=== PATIENT | male | born 1970 | race African-American/Black ===

== ENCOUNTER 2023-12-22 20:32 | Inpatient (IN) | payer BC, OTHER ==
[~2023-12-22] VITALS: Ht 185.4 cm; Wt 154.0 kg
[2023-12-22 21:45] LABS: Basophils # (auto) 0.1 10 ^3/uL (0-0.2); Hemoglobin 12.1 g/dL (13.5-17.5); Lymphocytes # (auto) 3.5 10 ^3/uL (0.4-5.4); Neutrophils # (auto) 4.8 10 ^3/uL (1.6-8.6); Nucleated Red Blood Cells % 0.1 %
[2023-12-22 21:47] LABS: Basophils % (auto) 0.7 % (0.0-2.0); Eosinophils # (auto) 0.5 10 ^3/uL (0-0.8); Eosinophils % (auto) 4.7 % (0.0-7.0); Hematocrit 38.6 % (41.0-53.0); Lymphocytes % (auto) 34.7 % (10.0-50.0); Mean Corpuscular Hemoglobin 23.7 pg (28.0-32.0); Mean Corpuscular Hgb Conc. 31.4 g/dL (32.0-36.0); Mean Corpuscular Volume 75.5 fL (80.0-100.0); Monocytes # (auto) 1.2 10 ^3/uL (0-1.3); Neutrophils % (auto) 47.9 % (37.0-80.0); Red Cell Distribution Width 15.8 % (11.8-14.3); White Blood Cell 10.1 10^3/uL (4.4-10.8)
[2023-12-22 22:04] LABS: Alanine Aminotransferase 27 U/L (7-40); Albumin 4.2 g/dL (3.2-4.8); Alkaline Phosphatase 81 U/L (46-116); Anion Gap 7 (5-15); Aspartate Aminotransferase 24 U/L (13-40); BUN/Creatinine Ratio 8.7 (10.0-20.0); Blood Urea Nitrogen 19 mg/dL (9-23); Calcium 10.1 mg/dL (8.7-10.4); Carbon Dioxide 27 mmol/L (20-30); Chloride 107 mmol/L (98-107); Glucose 136 mg/dL (74-106); Potassium 3.4 mmol/L (3.5-5.1); Sodium 141 mmol/L (136-145)
[2023-12-22 22:05] LABS: Bilirubin, Total 0.3 mg/dL (0.2-1.0)
[2023-12-22] MEDS: hydrALAZINE HCL 10 MG TAB PO ONE (22:14)
[2023-12-22 22:29] LABS: Urine Bacteria FEW /hpf (None Seen); Urine Blood TRACE /uL (Negative); Urine Clarity Clear (Clear); Urine Color Colorless (Yellow); Urine Protein, UAD 3+ (Negative); Urine Specific Gravity 1.012 (1.001-1.035); Urine Urobilinogen Normal (Negative); Urine WBC 1 /hpf (0 - 3)
[2023-12-22] MEDS: hydroCHLOROthiazide 25 MG TAB PO ONE (22:57)
[2023-12-22] MEDS: HYDROcodone-ACET 5/325MG TAB PO ONE (22:57)
[2023-12-22] MEDS: NIFEdipine ER 30 MG TAB PO ONE (22:58)
[2023-12-23] VITALS (7 sets, daily range): BP systolic 149–170; BP diastolic 89–102; PULSE 63–73; RESP 16–18; TEMP 98.2–98.5; O2SAT 94–98
[2023-12-23] MEDS: hydrALAZINE HCL 20 MG/ML VL IV ONE (02:26)
[2023-12-23] MEDS: cloNIDine 0.2 mg/24hr 7DAY PATCH TD ONE (02:52)
[2023-12-23] MEDS ORDERED: ONDANSETRON HCL 4 MG/2 ML VIAL IV PRN (03:30)
[2023-12-23] MEDS ORDERED: HYDROcodone-ACET 5/325MG TAB PO PRN (03:30)
[2023-12-23] MEDS ORDERED: DOCUSATE SOD 100 MG CAP PO PRN (03:30)
[2023-12-23] MEDS ORDERED: DEXTROSE (50%) 50ML SYRG IV PRN (03:30)
[2023-12-23] MEDS ORDERED: ACETAMINOPHEN 325 MG TAB PO PRN (03:30)
[2023-12-23 05:09] LABS: Alanine Aminotransferase 28 U/L (7-40); Albumin 4.5 g/dL (3.2-4.8); Alkaline Phosphatase 79 U/L (46-116); Anion Gap 6 (5-15); Aspartate Aminotransferase 19 U/L (13-40); Calcium 10.3 mg/dL (8.7-10.4); Carbon Dioxide 29 mmol/L (20-30); Chloride 104 mmol/L (98-107); Glucose 192 mg/dL (74-106); Potassium 3.3 mmol/L (3.5-5.1); Sodium 139 mmol/L (136-145)
[2023-12-23 05:10] LABS: Bilirubin, Total 0.3 mg/dL (0.2-1.0); Total Protein 8.6 g/dL (5.7-8.2)
[2023-12-23] MEDS: POTASSIUM CHL 20 Meq TABLET PO ONE (05:12)
[2023-12-23] MEDS: amLODIPine BESYLATE 5 MG TAB PO ONE (05:12)
[2023-12-23 05:21] LABS: Basophils # (auto) 0.1 10 ^3/uL (0-0.2); Basophils % (auto) 0.7 % (0.0-2.0); Eosinophils # (auto) 0.2 10 ^3/uL (0-0.8); Hemoglobin 12.7 g/dL (13.5-17.5); Lymphocytes # (auto) 2.1 10 ^3/uL (0.4-5.4); Neutrophils # (auto) 7.1 10 ^3/uL (1.6-8.6)
[2023-12-23 05:23] LABS: Hematocrit 39.3 % (41.0-53.0); Lymphocytes % (auto) 20.7 % (10.0-50.0); Mean Corpuscular Hemoglobin 24.3 pg (28.0-32.0); Mean Corpuscular Hgb Conc. 32.3 g/dL (32.0-36.0); Mean Corpuscular Volume 75.2 fL (80.0-100.0); Monocytes # (auto) 0.8 10 ^3/uL (0-1.3); Monocytes % (auto) 7.6 % (0.0-12.0); Nucleated Red Blood Cells % 0.1 %; Red Blood Cells 5.23 10^6/uL (4.5-5.90); Red Cell Distribution Width 15.6 % (11.8-14.3); White Blood Cell 10.3 10^3/uL (4.4-10.8)
[2023-12-23] MEDS: SODIUM CHLOR 0.9% PF (SALINE LOCK) 10ML VIAL/SYR IV SCH (06:00)
[2023-12-23] MEDS: hydrALAZINE HCL 20 MG/ML VL IV PRN (06:51)
[2023-12-23] MEDS: LEVOTHYROXINE SODIUM 100 MCG TAB PO SCH (07:00)
[2023-12-23] MEDS: InsuLIN REG 1unit/0.01ml Soln (100units/ml) SC SCH ×2 (07:00→21:13)
[2023-12-23 07:02] LABS: BUN/Creatinine Ratio 10.6 (10.0-20.0); Blood Urea Nitrogen 22 mg/dL (9-23)
[2023-12-23] MEDS ORDERED: MORPHINE SULFATE INJ 2 MG/ml SYRG IV PRN (07:15)
[2023-12-23] MEDS ORDERED: NITROGLYCERIN 0.4 MG SL TAB SL PRN (07:15)
[2023-12-23] MEDS: ACCU-CHEK COMFORT CURVE STRIP VI SCH (07:19)
[2023-12-23] MEDS ORDERED: hydrALAZINE HCL 25 MG TAB PO PRN (08:30)
[2023-12-23 08:39] LABS: Magnesium 2.2 mg/dL (1.6-2.6)
[2023-12-23] MEDS: amLODIPine BESYLATE 5 MG TAB PO SCH (09:05)
[2023-12-23] MEDS ORDERED: hydrALAZINE HCL 25 MG TAB PO SCH (09:30)
[2023-12-23 09:48] LABS: LDL Cholesterol 147 mg/dL (< 100); Triglycerides 108 mg/dL (< 150)
[2023-12-23 09:50] LABS: Cholesterol 215 mg/dL (< 200); HDL Cholesterol 48 mg/dL (40-59)
[2023-12-23] MEDS: NIFEdipine ER 30 MG TAB PO SCH (10:00)
[2023-12-23] MEDS ORDERED: METOPROLOL TARTRATE 25 MG TAB PO SCH (10:00)
[2023-12-23] MEDS: hydrALAZINE HCL 25 MG TAB PO SCH (12:00)
[2023-12-23] MEDS: METOPROLOL TARTRATE 25 MG TAB PO SCH (12:39)
[2023-12-23] MEDS: hydrALAZINE HCL 25 MG TAB PO ONE (12:40)
[2023-12-23] MEDS: POTASSIUM EFFERVESENT TAB 25 MEQ PO ONE (12:40)
[2023-12-23] MEDS ORDERED: CLON0.3D4 PO (13:18)
[2023-12-23] MEDS ORDERED: NIFE1TAB36 PO (13:18)
[2023-12-23] MEDS ORDERED: HYDR25TA87 PO (13:18)
[2023-12-23] MEDS ORDERED: HYDR25TA5 PO (13:18)
[2023-12-23] MEDS ORDERED: CLON0.1T PO (13:18)
[2023-12-23] MEDS: cloNIDine HCL 0.1 MG TAB PO PRN (13:32)
[2023-12-23 14:18] LABS: Sodium Urine 92 mmol/L (40-220)
[2023-12-23 14:23] LABS: Protein, Urine 212.6 mg/dL (0.0-11.9)
[2023-12-23 14:25] LABS: Amphetamine Screen, Urine Neg (NEGATIVE); Barbiturate Scree,Urine Neg (NEGATIVE); Benzodiazephine Screen, Urine Neg (NEGATIVE); Cannabinoid Screen, Urine Neg (NEGATIVE); Cocaine Screen, Urine Neg (NEGATIVE); Opiate Scree,Urine Neg (NEGATIVE); Phencyclidine Screen, Urine Neg (NEGATIVE)
[2023-12-23 14:26] LABS: Creatinine, Urine 68.51 mg/dL (30.0-125.0)
[2023-12-23] MEDS: ATORVASTATIN 20 MG TAB PO SCH (21:12)
[2023-12-24 01:00] VITALS: BP 162/94; PULSE 51; RESP 17; TEMP 98.2; O2SAT 98
[2023-12-24 05:00] VITALS: BP 154/87; PULSE 61; RESP 18; TEMP 98.2; O2SAT 99
[2023-12-24 06:20] LABS: Basophils # (auto) 0.1 10 ^3/uL (0-0.2); Basophils % (auto) 0.6 % (0.0-2.0); Eosinophils # (auto) 0.3 10 ^3/uL (0-0.8); Eosinophils % (auto) 3.5 % (0.0-7.0); Hematocrit 35.4 % (41.0-53.0); Hemoglobin 11.6 g/dL (13.5-17.5); Lymphocytes # (auto) 3.9 10 ^3/uL (0.4-5.4); Lymphocytes % (auto) 41.7 % (10.0-50.0); Mean Corpuscular Hemoglobin 24.5 pg (28.0-32.0); Mean Corpuscular Hgb Conc. 32.7 g/dL (32.0-36.0); Monocytes # (auto) 0.9 10 ^3/uL (0-1.3); Monocytes % (auto) 9.6 % (0.0-12.0); Neutrophils # (auto) 4.2 10 ^3/uL (1.6-8.6); Neutrophils % (auto) 44.6 % (37.0-80.0); Nucleated Red Blood Cells % 0.1 %; Red Blood Cells 4.72 10^6/uL (4.5-5.90); Red Cell Distribution Width 15.9 % (11.8-14.3); White Blood Cell 9.4 10^3/uL (4.4-10.8)
[2023-12-24 06:24] LABS: Alanine Aminotransferase 23 U/L (7-40); Albumin 3.7 g/dL (3.2-4.8); Alkaline Phosphatase 63 U/L (46-116); Anion Gap 7 (5-15); Aspartate Aminotransferase 16 U/L (13-40); BUN/Creatinine Ratio 10.8 (10.0-20.0); Bilirubin, Total 0.4 mg/dL (0.2-1.0); Blood Urea Nitrogen 23 mg/dL (9-23); Calcium 9.6 mg/dL (8.7-10.4); Carbon Dioxide 29 mmol/L (20-30); Chloride 104 mmol/L (98-107); Creatine Kinase IFCC 228 U/L (46-171); Glucose 118 mg/dL (74-106); Magnesium 2.1 mg/dL (1.6-2.6); Potassium 3.3 mmol/L (3.5-5.1); Sodium 140 mmol/L (136-145); Total Protein 7.1 g/dL (5.7-8.2)
[2023-12-24 08:15] VITALS: PULSE 61; RESP 17; O2SAT 98
[2023-12-24 09:00] VITALS: BP 157/91; PULSE 54; RESP 18; TEMP 97.8; O2SAT 100
[2023-12-24] MEDS: POTASSIUM EFFERVESENT TAB 25 MEQ PO ONE (09:18)
[2023-12-24 13:00] VITALS: BP 153/93; PULSE 53; RESP 18; TEMP 97.8; O2SAT 99
[2023-12-24 13:51] VITALS: BP 153/94; PULSE 55
[2023-12-24] MEDS ORDERED: LISI-275 PO (13:59)
[2023-12-24] MEDS ORDERED: METF-370 PO (14:00)
[2023-12-24] MEDS ORDERED: SPIR25TA8 PO (17:59)
== END 2023-12-24 14:58 | disposition home or self-care (01) | DRG 305 ==
LOC: ER 20:32 → TELE 12-23 07:14 → TELE-WESTW 12-23 14:46
PROVIDERS: ADMIT Internal Medicine Pulmonary Disease; ATTEND Internal Medicine Pulmonary Disease
DX: I16.1 Hypertensive emergency (principal); N17.9 Acute kidney failure, unspecified; Z68.41 Body mass index [BMI] 40.0-44.9, adult; E87.6 Hypokalemia; E11.65 Type 2 diabetes mellitus with hyperglycemia; E11.22 Type 2 diabetes mellitus with diabetic chronic kidney disease; N18.9 Chronic kidney disease, unspecified; I12.9 Hypertensive chronic kidney disease with stage 1 through stage 4 chronic kidney disease, or unspecified chronic kidney disease; E78.5 Hyperlipidemia, unspecified; E03.9 Hypothyroidism, unspecified; E66.01 Morbid (severe) obesity due to excess calories; G47.30 Sleep apnea, unspecified; Z91.199 Patient's noncompliance with other medical treatment and regimen due to unspecified reason; Z79.84 Long term (current) use of oral hypoglycemic drugs
CPT/HCPCS: 36415; 76775; 80053; 80061; 80307; 81001; 82088; 82306; 82550; 82570; 82962; 83036; 83735; 83880; 83970; 84100; 84156; 84244; 84300; 84443; 84484; 85025; 93005; 93306; G0378